=== PATIENT | male | born 1950 | race Caucasian/White ===

== ENCOUNTER 2017-10-29 17:53 | Emergency (ER) | payer OTHER ==
[~2017-10-29] VITALS: Ht 167.6 cm; Wt 93.4 kg
[2017-10-29 18:02] VITALS: BP 164/85; Ht 167.6 cm; Wt 93.4 kg
== END 2017-10-29 18:36 | disposition home or self-care (01) ==
LOC: ED 17:53
DX: M54.5 Low back pain (principal)

== ENCOUNTER 2018-01-14 05:39 | Emergency (ER) | payer OTHER ==
[~2018-01-14] VITALS: Ht 167.6 cm; Wt 94.3 kg
[2018-01-14 05:51] VITALS: BP 167/103; Ht 167.6 cm; Wt 94.3 kg
== END 2018-01-14 06:34 | disposition home or self-care (01) ==
LOC: ED 05:39
DX: G89.29 Other chronic pain (principal); M54.9 Dorsalgia, unspecified